=== PATIENT | male | born 1970 | race Caucasian/White ===

== ENCOUNTER → 2019-04-27 | Outpatient (CLI) | payer BC ==
[~2019-04-27] MED LIST: CET10 PO; IBU600 PO; LISI-350 PO; LISI-353 PO; LOR5/325 PO
== END ==
LOC: LAB 16:42
PROVIDERS: ATTEND Internal Medicine
DX: R79.0 Abnormal level of blood mineral (principal)
CPT/HCPCS: 36415; 81256